=== PATIENT | male | born 1955 | race Caucasian/White ===

== ENCOUNTER → 2018-07-27 07:10 | Outpatient (CLI) | payer OTHER, SELFPAY ==
--- NOTE | 2018-07-27 07:12 | ECHOD_ITS ---
Reason For Study: ASD Procedure This was a 2D Doppler, Color Flow transthoracic echocardiogram. Exam performed in department. Left Ventricle Normal LV size. The estimated ejection fraction is 53 %. Left ventricular systolic function is lower limits of normal. No regional wall motion abnormalities noted. Right Ventricle Normal RV size. Normal systolic function. Atria Normal left atrium. Normal right atrium. Bubble contrast study negative for right to left interatrial shunt. Mitral Valve Normal mitral valve. Tricuspid Valve Normal tricuspid valve. Mild (1+) tricuspid valve insufficiency. Pulmonary artery systolic pressure is 28 mmHg. Aortic Valve Trisinus/trileaflet aortic valve. Pulmonic Valve Normal pulmonic valve. Great Vessels Mildly dilated aortic root. The pulmonary artery is normal size. Normal inferior vena cava. Pericardium/Pleural No pericardial effusion. Medication Performed a rapid injection of agitated mix of 9 cc saline and 1cc air to assess for atrial septal defect. MMode/2D Measurements & Calculations LVIDd: 4.6 cm IVSd: 1.0 cm Ao root diam: 4.0 cm LVIDs: 3.1 cm LVPWd: 0.73 cm LA dimension: 3.9 cm RVDd: 4.0 cm FS: 31.8 % LAV(MOD-bp): 66.2 ml LAV(MOD-bp) Indexed: 29.7 ml/m2 LA A4 area: 17.5 cm2 RA A4 area: 16.7 cm2 LAV(MOD-sp2): 68.8 ml LAV(MOD-sp4): 49.8 ml Time Measurements MV dec time: 0.25 sec Doppler Measurements & Calculations MV E max jared: 48.1 cm/sec Lat Peak E' Jared: 5.4 cm/sec Med Peak E' Jared: 6.2 cm/sec MV A max jared: 69.7 cm/sec E/E' lat: 8.9 E/E' med: 7.8 MV E/A: 0.69 MV V2 max: 67.2 cm/sec MV P1/2t max jared: 56.4 cm/sec Ao V2 max: 92.5 cm/sec MV max P.8 mmHg MV P1/2t: 104.0 msec Ao max P.4 mmHg MV V2 mean: 38.0 cm/sec MV dec slope: 159.0 cm/sec2 Ao V2 mean: 67.6 cm/sec MV mean P.68 mmHg MVA(P1/2t): 2.1 cm2 Ao mean P.9 mmHg MV V2 VTI: 20.6 cm Ao V2 VTI: 20.4 cm LV V1 max: 91.5 cm/sec PA V2 max: 88.4 cm/sec TR max jared: 245.7 cm/sec LV V1 max P.4 mmHg TR max P.1 mmHg LV V1 mean P.7 mmHg LV V1 mean: 60.0 cm/sec LV V1 VTI: 20.7 cm Interpretation Summary Normal LV size. The estimated ejection fraction is 53 %. Left ventricular systolic function is lower limits of normal. Bubble contrast study negative for right to left interatrial shunt. Mild (1+) tricuspid valve insufficiency. Ordering Physician: Willie Black Referring Physician: Willie Black Performed By: Pola Melara RCS
--- NOTE | 2018-07-27 16:09 | STRESSREP ---
Stress Test Report Exercise myocardial perfusion stress test. 63-year-old man with a history of abnormal EKG. Stress protocol: Resting EKG demonstrates sinus rhythm with a rate of 64 bpm resting blood pressure is 142/62 mmHg. The patient exercised according to regular Davin protocol for total duration of 7 minutes and 45 seconds attaining a heart rate of 148 bpm which was 94% of maximum heart rate the maximum workload was 9.7 metabolic equivalents. At rest there were no ST or T-wave changes noted suggest ischemia peak exercise upsloping ST changes were noted as well as nonspecific ST-T wave changes. No clinical angina was noted. The resting blood pressures 142/62 with a peak blood pressure 168/82 mmHg. No clinical angina was noted. Myocardial perfusion protocol. 14.1 mCi of technetium 99m sestamibi was injected. The patient exercised according to regular Davin protocol for 7 minutes and 45 seconds attaining 94% of maximum predicted heart rate and a workload of 9.7 metabolic equivalents. At peak exercise 43.9 mCi of technetium 99m sestamibi was injected stress images were obtained stress and rest images were reconstructed and compared in the short axis vertical long horizontal long axis. Gated images were also obtained Perfusion SPECT analysis: Review of the stress images demonstrate normal uptake of tracer noted in all areas of the myocardium with no areas of reversibility to suggest ischemia. Gated SPECT analysis: The gated ejection fraction is noted to be 61%. Conclusion: Normal exercise myocardial perfusion stress test. Excellent functional capacity. Preserved ejection fraction.
== END ==
PROVIDERS: Family Provider Nurse Practitioner Family; PCP Nurse Practitioner Family; Visit Provider Internal Medicine Cardiovascular Disease
DX: I25.10 Atherosclerotic heart disease of native coronary artery without angina pectoris (principal); I10 Essential (primary) hypertension; R94.31 Abnormal electrocardiogram [ECG] [EKG]
CPT/HCPCS: 78452; 93017; 93306; A9500; A4216

== ENCOUNTER → 2019-11-04 | Outpatient (CLI) | payer OTHER, SELFPAY ==
[2019-08-06 08:59] VITALS: BMI 30.7
== END | disposition home or self-care (01) ==
LOC: LABSPEC 16:05
PROVIDERS: Family Provider Nurse Practitioner Family; PCP Nurse Practitioner Family; Referring Provider Otolaryngology; Visit Provider Otolaryngology
DX: J01.90 Acute sinusitis, unspecified (principal)
CPT/HCPCS: 87070; 87077; 87186; 87205

== ENCOUNTER → 2019-12-02 08:07 | Outpatient (CLI) | payer OTHER, SELFPAY ==
[2019-08-06 08:59] VITALS: BMI 30.7
--- NOTE | 2019-12-02 08:10 | CT_ITS ---
STUDY: CT MAXILLOFACIAL SINUSES REASON FOR EXAM: Male, 64 years old. Chronic sinusitis, right maxillary pain. Hx hypertension. [facility] navigation protocol. RADIATION DOSAGE (If Supplied By Facility): CTDIvol = ( 33.06 ) mGy, DLP = ( 817.32 ) mGycm TECHNIQUE: The patient was scanned in a multi detector CT scanner. High resolution axial imaging was performed without the administration of intravenous contrast material. Sagittal and coronal images were reconstructed. Individualized dose optimization techniques were used for this CT. COMPARISON: None. FINDINGS: FRONTAL SINUSES: Mucosal thickening of the right frontal sinus. ETHMOIDAL SINUSES: Opacification of the right ethmoid sinus. MAXILLARY SINUSES: Complete opacification of the right maxillary sinus. SPHENOIDAL SINUSES: Normal aeration, without mucosal inflammatory disease. There is obliteration of the right maxillary infundibulum due to soft tissue proliferation. Normal bilateral middle turbinates. Normal bilateral inferior turbinates. Normal midline nasal septum. Diffuse soft tissue changes in the right nasal fossa suggestive of possible polyposis. Thinning of the medial wall of the right maxillary sinus. The visualized bilateral orbital contents are normal. CT/Sinus/Facial Bone IMPRESSION: Opacification of the right maxillary sinus and partial opacification of the right ethmoid sinus with mucosal thickening of the right frontal sinus. Soft tissue density in the right nasal airway most likely secondary to polyposis with obstruction of the right maxillary infundibulum. Electronically Signed: Maxwell Ferrell, at 9:10 EST , Service support ,
== END ==
PROVIDERS: PCP Nurse Practitioner Family; Referring Provider Otolaryngology; Visit Provider Otolaryngology
DX: J32.0 Chronic maxillary sinusitis (principal)
CPT/HCPCS: 70486

== ENCOUNTER → 2020-08-17 09:43 | Outpatient (CLI) | payer OTHER, SELFPAY ==
[2020-08-17 08:50] VITALS: BMI 31.3
[2020-08-17 10:32] LABS: Anion Gap 5 (5-15); BUN 21 mg/dL (7-18); BUN/Creat Ratio 16.4 RATIO (10-20); Chloride 104 mmol/L (98-107); Creatinine, Serum 1.28 mg/dL (0.70-1.30); EST Glomerular Filtration Rate 60 mL/min (>60); Est Glom Filt Rate - Afr Amer 72 mL/min (>60); Glucose 94 mg/dL (74-106); Magnesium 2.3 mg/dL (1.6-2.6); Potassium 3.6 mmol/L (3.5-5.1); Sodium Level 139 mmol/L (136-145)
== END ==
PROVIDERS: PCP Nurse Practitioner Family; Referring Provider Internal Medicine Cardiovascular Disease; Visit Provider Internal Medicine Cardiovascular Disease
DX: I49.49 Other premature depolarization (principal)
CPT/HCPCS: 36415; 80048; 83735

== ENCOUNTER → 2020-09-07 12:38 | Outpatient (CLI) | payer OTHER, SELFPAY ==
[2020-08-17 08:50] VITALS: BMI 31.3
--- NOTE | 2020-09-07 12:39 | ECHOD_ITS ---
Reason For Study: ARRHYTHYMIA Procedure This was a 2D Doppler, Color Flow transthoracic echocardiogram. Exam performed in department. Left Ventricle Normal LV size. Left ventricular systolic function is normal. The estimated ejection fraction is 60 %. Stage 1 diastolic dysfunction. No regional wall motion abnormalities noted. Right Ventricle Normal RV size. Normal systolic function. Atria Normal left atrium. Normal right atrium. Mitral Valve Normal mitral valve. Tricuspid Valve Normal tricuspid valve. Aortic Valve Trisinus/trileaflet aortic valve. Pulmonic Valve The pulmonic valve is not well visualized. Great Vessels Normal aortic root. The pulmonary artery is normal size. Normal inferior vena cava. Pericardium/Pleural No pericardial effusion. MMode/2D Measurements & Calculations LVIDd: 4.2 cm IVSd: 0.85 cm Ao root diam: 3.7 cm LVIDs: 2.9 cm LVPWd: 0.93 cm RVDd: 3.9 cm FS: 31.5 % LAV(MOD-bp): 45.7 ml LVAd ap4: 31.3 cm2 SV(MOD-sp4): 66.9 ml LAV(MOD-bp) Indexed: 20.2 ml/m2 EDV(MOD-sp4): 99.6 ml LAV(MOD-sp2): 51.8 ml EDV(sp4-el): 101.0 ml LAV(MOD-sp4): 39.3 ml LVAs ap4: 15.8 cm2 ESV(MOD-sp4): 32.7 ml ESV(sp4-el): 31.6 ml EF(MOD-sp4): 67.2 % EF(sp4-el): 68.7 % SV(sp4-el): 69.4 ml LA A4 area: 15.4 cm2 LA dimension(2D): 4.0 cm RA A4 area: 12.9 cm2 Time Measurements MV dec time: 0.26 sec Doppler Measurements & Calculations MV E max jared: 51.9 cm/sec Lat Peak E' Jared: 7.0 cm/sec Med Peak E' Jared: 6.8 cm/sec MV A max jared: 65.9 cm/sec E/E' lat: 7.4 E/E' med: 7.6 MV E/A: 0.79 Ao V2 max: 132.8 cm/sec LV V1 max: 102.9 cm/sec PA V2 max: 87.6 cm/sec Ao max P.1 mmHg LV V1 max P.2 mmHg TR max jared: 228.1 cm/sec TR max P.8 mmHg Interpretation Summary Normal LV size. Left ventricular systolic function is normal. The estimated ejection fraction is 60 %. Stage 1 diastolic dysfunction. Ordering Physician: Willie Black Referring Physician: CATHI MERRILL Performed By: Cinthya Pickens RDCS
== END ==
PROVIDERS: PCP Nurse Practitioner Family; Referring Provider Internal Medicine Cardiovascular Disease; Visit Provider Internal Medicine Cardiovascular Disease
DX: I49.3 Ventricular premature depolarization (principal); I49.49 Other premature depolarization; I10 Essential (primary) hypertension
CPT/HCPCS: 93225; 93226; 93306